=== PATIENT | male | born 1955 | race Caucasian/White ===

== ENCOUNTER 2017-09-02 15:33 | Emergency (ER) | payer OTHER ==
[~2017-09-02] VITALS: Ht 152.4 cm; Wt 80.5 kg
[2017-09-02 15:43] VITALS: Ht 152.4 cm; Wt 80.5 kg
[2017-09-02 17:17] VITALS: BP 121/76
== END 2017-09-02 17:17 | disposition home or self-care (01) ==
LOC: ED 15:33
DX: S70.12XA Contusion of left thigh, initial encounter (principal); D66 Hereditary factor VIII deficiency; W01.0XXA Fall on same level from slipping, tripping and stumbling without subsequent striking against object, initial encounter; Y93.89 Activity, other specified; Y92.89 Other specified places as the place of occurrence of the external cause; Y99.8 Other external cause status

== ENCOUNTER 2017-09-04 18:42 | Inpatient (IN) | payer OTHER ==
[~2017-09-04] VITALS: Ht 162.6 cm; Wt 77.6 kg
[2017-09-04 18:54] VITALS: Ht 162.6 cm; Wt 77.6 kg
[2017-09-04 20:58] LABS: BASOPHIL % 0.3 % (0-2); PLATELET COUNT 222 x10^3mcL (130-400)
[2017-09-04 21:02] LABS: RED CELL DISTRIBUTION WIDTH 14.9 % (11.5-14.5)
[2017-09-04 21:12] LABS: ALBUMIN 3.3 g/dL (3.4-5.0); ALKALINE PHOSPHATASE 42 U/L (46-116); ALT/SGPT 73 U/L (16-63); AST/SGOT 47 U/L (15-37); BILIRUBIN TOTAL 0.34 mg/dL (0.20-1.00); CARBON DIOXIDE 24.6 mmol/L (21-32); CHLORIDE SERUM 105 mmol/L (98-107); CREATININE SERUM 0.7 mg/dL (0.7-1.3); GFR1 > 60 mL/min; GLUCOSE SERUM 222 mg/dL (74-106); POTASSIUM SERUM 4.6 mmol/L (3.5-5.1); SODIUM SERUM 139 mmol/L (136-145); TOTAL PROTEIN, SERUM 6.1 g/dL (6.4-8.2)
[2017-09-04 22:27] LABS: microscopic required? NO
[2017-09-04] MEDS ORDERED: ADVATE IV (22:40)
[2017-09-04 22:42] LABS: T3 TOTAL 1.06 ng/mL
[2017-09-04 22:56] LABS: UA SPECIFIC GRAVITY 1.015 (1.005-1.035); urine erythrocyte NEGATIVE (NEGATIVE)
[2017-09-04 23:13] VITALS: BP 140/74
[2017-09-05 00:28] LABS: AMPHETAMINE QUAL UR NONE DETECTED (NEG <=1000)
[2017-09-05 00:37] LABS: MAGNESIUM 2.1 mg/dL (1.8-2.4); PHOSPHOROUS 3.4 mg/dL (2.5-4.9)
[2017-09-05 00:38] LABS: CHOLESTEROL/HDL RATIO 2.6
[2017-09-05 00:56] LABS: FREE T4 0.9 ng/dL (0.76-1.46); FREE THYROXINE INDEX 2.4 ug/dL (1.4-4.5); T4(THYROXINE) 8.4 ug/dL (4.7-13.3)
[2017-09-05 05:10] LABS: CALCIUM 8.1 mg/dL (8.5-10.1); CARBON DIOXIDE 25.5 mmol/L (21-32); CHLORIDE SERUM 110 mmol/L (98-107); CREATININE SERUM 0.6 mg/dL (0.7-1.3); GFR1 > 60 mL/min; GLUCOSE SERUM 125 mg/dL (74-106); POTASSIUM SERUM 4.1 mmol/L (3.5-5.1); SODIUM SERUM 141 mmol/L (136-145)
[2017-09-05 05:19] LABS: BASOPHIL % 0.3 % (0-2); PLATELET COUNT 199 x10^3mcL (130-400)
[2017-09-05 05:20] LABS: RED CELL DISTRIBUTION WIDTH 14.7 % (11.5-14.5)
[2017-09-05 05:49] VITALS: BP 127/68
[2017-09-05 08:58] VITALS: BP 117/74
[2017-09-05] MEDS ORDERED: CELEXA20 MG PO (10:05)
[2017-09-05] MEDS ORDERED: ARICEPT10 MG PO (10:05)
[2017-09-05 12:09] LABS: IRON 237 ug/dL (65-170); TOTAL IRON BINDING CAPACITY 220 ug/dL (250-450)
[2017-09-05 12:34] VITALS: BP 119/79
[2017-09-05 12:49] LABS: BASOPHIL % 0.3 % (0-2); PLATELET COUNT 186 x10^3mcL (130-400); RED CELL DISTRIBUTION WIDTH 14.5 % (11.5-14.5)
[2017-09-05 13:11] LABS: RED BLOOD CELLS 2.27 M/mm3 (4.52-5.90)
[2017-09-05 17:20] VITALS: BP 105/65
[2017-09-05 20:17] VITALS: BP 108/66
[2017-09-06 04:33] VITALS: BP 103/69
[2017-09-06 06:29] LABS: BASOPHIL % 0.4 % (0-2); PLATELET COUNT 165 x10^3mcL (130-400)
[2017-09-06 06:39] LABS: RED CELL DISTRIBUTION WIDTH 15.3 % (11.5-14.5)
[2017-09-06 06:51] LABS: rbc morphology (normal/abnorm) ABNORMAL (NORMAL)
[2017-09-06 07:01] LABS: CALCIUM 8.2 mg/dL (8.5-10.1); CARBON DIOXIDE 27.3 mmol/L (21-32); CHLORIDE SERUM 108 mmol/L (98-107); CREATININE SERUM 0.5 mg/dL (0.7-1.3); GFR1 > 60 mL/min; GLUCOSE SERUM 101 mg/dL (74-106); MAGNESIUM 1.9 mg/dL (1.8-2.4); PHOSPHOROUS 2.8 mg/dL (2.5-4.9); POTASSIUM SERUM 3.9 mmol/L (3.5-5.1); SODIUM SERUM 140 mmol/L (136-145)
[2017-09-06 08:34] VITALS: BP 110/72
[2017-09-06 12:44] VITALS: BP 120/75
[2017-09-06 17:18] VITALS: BP 112/73
[2017-09-06 18:57] LABS: BASOPHIL % 0.3 % (0-2); PLATELET COUNT 171 x10^3mcL (130-400)
[2017-09-06 18:59] LABS: RED CELL DISTRIBUTION WIDTH 15.4 % (11.5-14.5)
[2017-09-06 20:45] VITALS: BP 106/67
[2017-09-07 05:42] VITALS: BP 118/73
[2017-09-07 08:00] LABS: CALCIUM 8.2 mg/dL (8.5-10.1); CARBON DIOXIDE 29.1 mmol/L (21-32); CHLORIDE SERUM 110 mmol/L (98-107); CREATININE SERUM 0.6 mg/dL (0.7-1.3); GFR1 > 60 mL/min; GLUCOSE SERUM 98 mg/dL (74-106); MAGNESIUM 2.1 mg/dL (1.8-2.4); PHOSPHOROUS 3.7 mg/dL (2.5-4.9); POTASSIUM SERUM 3.8 mmol/L (3.5-5.1); SODIUM SERUM 143 mmol/L (136-145)
[2017-09-07 08:26] LABS: BASOPHIL % 0.5 % (0-2); PLATELET COUNT 194 x10^3mcL (130-400); RED CELL DISTRIBUTION WIDTH 15.5 % (11.5-14.5)
[2017-09-07 08:31] VITALS: BP 111/77
[2017-09-07 12:40] VITALS: BP 135/81
[2017-09-07 17:31] VITALS: BP 130/80
[2017-09-07 20:37] VITALS: BP 110/65
[2017-09-08 06:18] LABS: CALCIUM 8.4 mg/dL (8.5-10.1); CARBON DIOXIDE 29.6 mmol/L (21-32); CHLORIDE SERUM 108 mmol/L (98-107); CREATININE SERUM 0.6 mg/dL (0.7-1.3); GFR1 > 60 mL/min; GLUCOSE SERUM 97 mg/dL (74-106); POTASSIUM SERUM 4.2 mmol/L (3.5-5.1); SODIUM SERUM 142 mmol/L (136-145)
[2017-09-08 06:30] VITALS: BP 122/77
[2017-09-08 07:04] LABS: BASOPHIL % 0.2 % (0-2); PLATELET COUNT 186 x10^3mcL (130-400)
[2017-09-08 08:41] VITALS: BP 130/84
[2017-09-08 16:31] VITALS: BP 112/67
[2017-09-08 20:50] VITALS: BP 113/70
[2017-09-09 05:17] VITALS: BP 122/81
[2017-09-09 06:37] LABS: CALCIUM 8.3 mg/dL (8.5-10.1); CARBON DIOXIDE 28.8 mmol/L (21-32); CHLORIDE SERUM 108 mmol/L (98-107); CREATININE SERUM 0.6 mg/dL (0.7-1.3); GFR1 > 60 mL/min; GLUCOSE SERUM 90 mg/dL (74-106); PHOSPHOROUS 3.8 mg/dL (2.5-4.9); POTASSIUM SERUM 4.4 mmol/L (3.5-5.1); SODIUM SERUM 141 mmol/L (136-145)
[2017-09-09 07:45] LABS: PLATELET COUNT 206 x10^3mcL (130-400)
[2017-09-09 07:59] LABS: RED CELL DISTRIBUTION WIDTH 16.3 % (11.5-14.5)
[2017-09-09 08:52] VITALS: BP 132/88
[2017-09-09 12:44] LABS: ATYPICAL LYMPH 7 %; BAND NEUTROPHIL 0 % (0-10); BASOPHIL 0 % (0-2); MONOCYTE 16 % (0-7); SEGMENTED NEUTROPHILS 36 % (37-75)
[2017-09-09 12:45] LABS: rbc morphology (normal/abnorm) ABNORMAL (NORMAL)
[2017-09-09 12:46] LABS: PLATELET MORPHOLOGY PLATELETS DECREASED
[2017-09-09 13:08] VITALS: BP 122/78
[2017-09-09 15:47] VITALS: BP 122/78
[2017-09-09 16:49] VITALS: BP 116/69
== END 2017-09-09 18:03 | disposition home or self-care (01) | DRG 813 ==
LOC: ED 18:42 → MU 21:55 → DU 21:55 → MU 09-07 08:47
PROVIDERS: Emergency Medicine; Family Medicine
PROC: 30233N1 Transfusion of Nonautologous Red Blood Cells into Peripheral Vein, Percutaneous Approach (ICD-10-PCS; principal; 2017-09-06)
DX: D66 Hereditary factor VIII deficiency (principal); N17.0 Acute kidney failure with tubular necrosis; E44.1 Mild protein-calorie malnutrition; E87.2 Acidosis; S70.12XA Contusion of left thigh, initial encounter; S70.11XA Contusion of right thigh, initial encounter; F03.90 Unspecified dementia, unspecified severity, without behavioral disturbance, psychotic disturbance, mood disturbance, and anxiety; M19.90 Unspecified osteoarthritis, unspecified site; R56.9 Unspecified convulsions; R74.0 Nonspecific elevation of levels of transaminase and lactic acid dehydrogenase [LDH]; E83.51 Hypocalcemia; E87.8 Other disorders of electrolyte and fluid balance, not elsewhere classified; I34.0 Nonrheumatic mitral (valve) insufficiency; W18.39XA Other fall on same level, initial encounter; G90.8 Other disorders of autonomic nervous system; D64.9 Anemia, unspecified; Y93.89 Activity, other specified; Y92.89 Other specified places as the place of occurrence of the external cause; Y99.8 Other external cause status; Z68.32 Body mass index [BMI] 32.0-32.9, adult
CPT/HCPCS: 83880; 84439; 97110-GP; 97116-GP; 97530-GP; 97535-GP; C9113; J7030; J7050; P9016; Q0092; Q0163

== ENCOUNTER 2019-04-10 11:42 | Emergency (ER) | payer OTHER ==
[~2019-04-10] VITALS: Ht 167.6 cm; Wt 79.1 kg
[~2019-04-10 11:42] MED LIST: ADVATE IV; ARICEPT10 MG PO; CELEXA20 MG PO
[2019-04-10 11:49] VITALS: Ht 167.6 cm; Wt 79.1 kg
[2019-04-10 12:07] VITALS: BP 134/88
== END 2019-04-10 13:23 | disposition home or self-care (01) ==
LOC: ED 11:42
DX: R06.6 Hiccough (principal); R07.89 Other chest pain; R19.7 Diarrhea, unspecified; I10 Essential (primary) hypertension
CPT/HCPCS: J1885

== ENCOUNTER 2019-07-23 09:05 | Day surgery (SDC) | payer OTHER ==
[~2019-07-23] VITALS: Ht 167.6 cm; Wt 75.7 kg
[2019-07-23 09:41] VITALS: BP 143/94
[2019-07-23 13:00] VITALS: BP 133/93
== END 2019-07-23 11:15 | disposition home or self-care (01) ==
LOC: GI 09:05 → OR 10:00 → GI 11:15
DX: Z12.11 Encounter for screening for malignant neoplasm of colon (principal); K63.89 Other specified diseases of intestine; K57.30 Diverticulosis of large intestine without perforation or abscess without bleeding; K64.8 Other hemorrhoids; Z79.899 Other long term (current) drug therapy; Z98.890 Other specified postprocedural states
CPT/HCPCS: 45378; J1200; J1610; J2250; J2310; J3010; J3490